=== PATIENT | female | born 1990 | race Caucasian/White ===

== ENCOUNTER 2016-11-09 02:26 | Inpatient (IN) ==
[2016-11-09 03:13] LABS: Bilirubin,Urine Negative (Negative); Blood,Urine Negative (Negative); Clarity,Urine Cloudy (Clear); Color,Urine Yellow (Yellow); Glucose,Urine (UA) Normal (Normal); Ketones,Urine Negative (Negative); Leukocyte Esterase,Urine Small (Negative); Nitrite,Urine Negative (Negative); Protein,Urine Negative (Neg-Trace); Specific Gravity,Urine 1.017 (1.010-1.025); Urobilinogen,Urine Normal (Normal)
[2016-11-09 03:15] LABS: Bacteria,Urine Moderate per hpf (None-Few); Hyaline Casts,Urine None Seen per lpf (None-Few); RBC,Urine 0-3 per hpf (0-3); Squamous Epithelial Cell,Urine Many per lpf (None-Few)
[2016-11-09 06:27] LABS: Basophils % 0.4 %; Eosinophils # 0.1 K/mcL (0.0-0.6); Eosinophils % 0.6 %; Hematocrit 34.8 % (35.3-44.9); Hemoglobin 11.5 g/dL (11.5-15.4); Immature Granulocytes % 1.2 % (0-4); Lymphocytes # 2.1 K/mcL (0.6-4.6); Lymphocytes % 26.6 %; Mean Corpuscular Hemoglobin 28.8 pg (28.0-33.3); Mean Platelet Volume 11.1 fL (9.4-12.4); Monocytes # 0.6 K/mcL (0.0-1.3); Monocytes % 7.1 %; Neutrophils # 5.2 K/mcL (1.6-8.9); Platelet Count 168 K/mcL (140-400); Red Cell Distribution Width 13.2 % (11.5-14.5); Segmented Neutrophils % 64.1 %
--- NOTE | 2016-11-09 07:04 | OB/GYN History & Physical ---
Date of Encounter: 11/09/16 Time of Encounter: 06:59 Assessment and Plan (1) labor in third trimester Current visit: Yes Status: Acute Will continue to monitor for cervial dilation and effacement. Will continue to use external and uterine monitoring. Urinalysis - contaminated POC per consult with Dr Varela Qualifiers: labor delivery status: without delivery Qualified Code(s): O60.03 - labor without delivery, third trimester (2) 36 weeks gestation of Current visit: Yes Status: Acute (3) Footling breech presentation Current visit: Yes Status: Acute Plan for primary section if patient continues to make cervical change. Qualifiers: Fetus number: single or unspecified fetus Qualified Code(s): O32.8XX0 - Maternal care for other malpresentation of fetus, not applicable or unspecified History of Present Illness Chief complaint: Contractions HPI: Ms. Agosto is a 26 year old at 36 weeks and 3 days that arrives to triage with complaints of contractions and feeling like that the "baby's foot is in her vagina". She is a known breech presentation and is electing a primary c/s if fetus does not spontaneously flip. She denies headache, epigastric pain, visual disturbances, vaginal bleeding, and vaginal discharge. She states positive movement. Her blood type is O+. She is GBS negative. She is rubella and varicella immune. She is RPR, HepB, and HIV nonreactive. Past Med Surg Social Fam HX - Past Medical History Medical history: no medical history Psychiatric history: no psych history - Past Surgical History Surgical History: no surgical history - Social History Smoking Status: Never smoker Smokeless Tobacco Status: No Alcohol use: none Drug use: none - Family History Mother History Unknown: Yes Obstetrical History - Pregnancies : 2 Para: 1 Term: 1 : 0 Ab's: 0 Livin Medications and Allergies Vitamins 1 tab PO DAILY 04/19/16 [History] 3 Allergy/AdvReac Type Severity Reaction Status Date / Time No Known Allergies Allergy Verified 11/09/16 02:48 Review of System OB All systems PM: reviewed and no additional remarkable complaints except as stated Exam - Constitutional Constitutional: well developed, well nourished, no acute distress, average body habitus - HEENT HEENT: Normocephaly, Mucus Membranes Moist - Lungs Respiratory exam: CTAB - Cardiovascular Cardiovascular exam: RRR, +S1, +S2 - Abdomen Abdomen: Present: bowel sounds normal, gravid, non tender - Extremities Extremities exam: normal capillary refill, normal inspection, radial pulses palpable and symmetrical Deep Tendon Reflex Grade: 2+ Normal - Cervix Dilation: 4 Effacement: 70 Station: -3 (Foot palpated) - Uterus Uterus exam: Present: normal size, normal contour Results Result Diagrams: 11/09/16 06:10 Abnormal lab results Hct 34.8 % (35.3-44.9) L 11/09/16 06:10 Urine Clarity Cloudy (Clear) A 11/09/16 02:59 Ur Leukocyte Esterase Small (Negative) H 11/09/16 02:59 Urine Microscopic WBC 5-15 per hpf (0-3) H 11/09/16 02:59 Ur Squamous Epith Cells Many per lpf (None-Few) H 11/09/16 02:59 Urine Bacteria Moderate per hpf (None-Few) H 11/09/16 02:59 Ur Culture Indicated? YES (NO) A 11/09/16 02:59 All other labs normal. - VTE Reasons for not Prescribing Prophylaxis: Treatment not Indicated - Low risk for VTE
--- NOTE | 2016-11-09 09:16 | OB/GYN Progress Note ---
Date of Encounter: 11/09/16 Time of Encounter: 09:14 - Assessment and Plan (1) 36 weeks gestation of Current Visit: Yes Status: Acute (2) Footling breech presentation Current Visit: Yes Status: Acute Qualifiers: Fetus number: single or unspecified fetus Qualified Code(s): O32.8XX0 - Maternal care for other malpresentation of fetus, not applicable or unspecified (3) labor in third trimester Current Visit: Yes Status: Acute Due to cervical progression, risk and benefits of expected management versus proceeding with primary low transverse section were discussed. Patient desires to proceed with primary low transverse section. Risk and benefits discussed. Qualifiers: labor delivery status: without delivery Qualified Code(s): O60.03 - labor without delivery, third trimester Subjective - Subjective Antepartum ROS: contractions (Patient reports increasing uterine activity.) Objective - Vital Signs Vital Signs: Intake and Output 11/08/16 11/09/16 11/09/16 23:59 07:59 15:59 Other: Weight 93.44 kg Patient Weight 11/09/16 23:59 Weight 93.44 kg - Exam FHR: category 1 Auscultation: bilateral: normal Abdomen: Present: soft, gravid Cervical dilation: 5-6 Cervix effacement: 80% station: -1/presenting part is foot - Labs Labs: Abnormal lab results Hct 34.8 % (35.3-44.9) L 11/09/16 06:10 Urine Clarity Cloudy (Clear) A 11/09/16 02:59 Ur Leukocyte Esterase Small (Negative) H 11/09/16 02:59 Urine Microscopic WBC 5-15 per hpf (0-3) H 11/09/16 02:59 Ur Squamous Epith Cells Many per lpf (None-Few) H 11/09/16 02:59 Urine Bacteria Moderate per hpf (None-Few) H 11/09/16 02:59 Ur Culture Indicated? YES (NO) A 11/09/16 02:59
[2016-11-09] MEDS ORDERED: Ringers Solution, Lactated 1,000 ML ONE ×3 (09:32→12:44)
--- NOTE | 2016-11-09 09:41 | Anesthesia Evaluation PreOp ---
Date of Encounter: 11/09/16 Time of Encounter: 09:38 - Past History Planned Operation: c/s, 36 weeks, breech, l1 Cardiac History: Denies any Significant Hx Pulmonary History: Denies Any Significant HX LEATHER TACKER History: Denies Any Significant HX Other Medical History: Denies Any Significant HX, Other (bicornuate uterus, vaginal delivery with epidural in 2012, no complications. pt denies scoliosis, denies easy bruise/bleed) Anesthesia History: No Prior Anesthetic Complications, Past Anesthesia (t&a) Alcohol Use: none Drug use: none Medications and Allergies Vitamins 1 tab PO DAILY 04/19/16 [History] 3 Allergy/AdvReac Type Severity Reaction Status Date / Time No Known Allergies Allergy Verified 11/09/16 02:48 - Meds/Allergy Pre-op Review Medications Reviewed: Yes Allergies Reviewed: Yes Beta Blockers on Current Med List: No Anesthesia Results - Labs 11/09/16 06:10 Anesthesia Exam 120/80, 73, fhr 120's Height: 1.68 Weight: 93 NPO (# of Hours): >8 - HEENT Pupil (Motor): Pupils equal, EOMI Mallampati: II Teeth: Normal Oral Opening: Greater than 3 - LEATHER TACKER LOC: Oriented LEATHER TACKER Motor: Normal RUE, Normal LUE, Normal RLE, Normal LLE, Normal Face LEATHER TACKER Sensory: Normal: RUE, LUE, RLE, LLE, Face - Cardiac Rhythm: Regular Murmur: None - Pulmonary Breath Sounds: bilateral Clear Respiratory Effort: Symmetrical Anesthesia Assess/Plan ASA Score: 2 (d/w pt risk of bleeding from atony with bicornuate uterus, it is assuring that she had no complications s/p vag delivery. however, we will be prepared to place hero, cvc and administer blood products under GA if needed.) Modified Anderson Scale for Level of Consciousness: Cooperative, oriented, and tranquil Anesthetic Plan: Regional Monitoring Plan: Standard Monitors Recovery Plan: PACU
[2016-11-09] MEDS ORDERED: Famotidine 20 MG/2 ML VIAL IVP PRN ×2 (10:05→18:19)
[2016-11-09] MEDS ORDERED: Metoclopramide 10 MG/2 ML VIAL IVP PRN ×3 (10:05→18:19)
[2016-11-09] MEDS ORDERED: Naloxone 0.4 MG/ML INJ IVP PRN ×2 (10:05→18:19)
[2016-11-09] MEDS ORDERED: ceFAZolin 2,000 MG in D5% in Water 100 ML IVPB ONE ×2 (10:09→18:19)
[2016-11-09] MEDS ORDERED: Ringers Solution, Lactated 1,000 ML IVC SCH ×2 (10:15→18:19)
--- NOTE | 2016-11-09 12:23 | Anesthesia Procedures ---
Date of Encounter: 11/09/16 Time of Encounter: 11:35 Procedures: Anesthesia - Epidural/Spinal Patient ID/Chart reviewed: Yes Patient examined: Yes OB Eval: Gestational age: 36 OB Eval: : 2 OB Eval: Hx Para: 1 OB Eval: Contractions: Non-stressed pattern Consent Obtained: Yes Supplemental Oxygen: Nasal Cannula Supplemental Oxygen Rate (L/min): 2 Site Prep: Aseptic Technique, Sterile prep and drape, Povidone-Iodine 1% Patient position: upright Local Anesthetic: Lidocaine 1% Amount of Local Anesthetic used: 3 Interspace Used: L3-L4 Loss of Resistance (AMI): No Blood: No CSF: Yes Paresthesia: Yes Spinal Needle Gauge: 22 Spinal Dose: bupivicaine 0.75% 1.6m dmorph 0.25mg fentanyl 10ug Vitals + FHT's: stable throughout see nursing notes
[2016-11-09] MEDS ORDERED: Ibuprofen 400 MG TABLET PO PRN ×2 (12:24→18:19)
[2016-11-09] MEDS ORDERED: *HR* OxyCODONE/APAP 5/325 TABLET PO PRN ×4 (12:24→18:19)
[2016-11-09] MEDS ORDERED: Ondansetron 4 MG/2 ML VIAL IVP PRN ×4 (12:24→20:53)
[2016-11-09] MEDS ORDERED: *HR* Meperidine 50 MG/ML SYRINGE IVP PRN ×2 (12:24→18:19)
[2016-11-09] MEDS ORDERED: *HR* Promethazine 25 MG/ML VIAL IVP PRN ×2 (12:24→18:19)
[2016-11-09] MEDS ORDERED: Ondansetron 4 MG/2 ML VIAL IVP ONE ×2 (12:24→18:19)
[2016-11-09] MEDS ORDERED: EPHEDrine 50 MG/ML VIAL ONE (12:29)
[2016-11-09] MEDS ORDERED: *HR* Morphine Sulfate/PF 5 MG/10 ML AMPUL ONE (12:29)
[2016-11-09] MEDS ORDERED: *HR* FentaNYL (PF) 100 MCG/2 ML VIAL ONE (12:29)
[2016-11-09] MEDS ORDERED: *HR* Oxytocin 10 UNIT/ML VIAL IM ONE ×2 (12:30→12:44)
[2016-11-09] MEDS ORDERED: Sennosides 8.6 MG TABLET PO PRN (13:05)
[2016-11-09] MEDS ORDERED: Ibuprofen 600 MG TABLET PO PRN (13:05)
[2016-11-09] MEDS ORDERED: Simethicone 80 MG TAB.CHEW PO PRN (13:05)
[2016-11-09] MEDS ORDERED: Oxytocin 20 units/ LR 1000 mL 20 UNIT/1,000 ML BAG IVC SCH (13:15)
--- NOTE | 2016-11-09 13:26 | OB/GYN Procedure Note ---
<Lam Benson - Last Filed: 11/09/16 13:33> Section - Date of procedure: 11/09/16 Preop diagnosis: breech, other (pre-term labor) Post-op diagnosis: same Procedure: primary low transverse Surgeon: Carlos Marie Estimated blood loss (cc): 500 Cigar Brander: Lam Benson Anesthesiologist: Peterson Castillo [employer]: Rena Real Anesthesia Type: Spinal section complications: none Disposition: PACU Specimens: Placenta - Infant (s) A Infant Delivery Date: 11/09/16 Delivery Time: 12:07 Presentation: footling breech Gender: Male Viability: Viable Pounds: 6 Ounces: 3 Gram Weight: 2.8 kg at 1 minute: 9 at 5 minutes: 9 Shoulder Dystocia: not encountered Placenta: complete extraction Cord: nuchal reduced (nuchal reduced x4) <Carlos Marie - Last Filed: 11/09/16 14:27> Section - Post-op diagnosis: other (Bicornuate uterus and nuchal cord 4) - Narrative Narrative: Patient was taken to the operating room. After satisfactory spinal anesthesia was achieved, she was placed in supine position Miller catheter inserted prepped and draped in usual manner. After appropriate timeout, the abdomen was entered through standard Maylard incision. The Kwame retractor was placed. The peritoneum overlying the lower uterine segment was incised in the U-shaped fashion. The uterine cavity was entered sharply and extended laterally. Fluid was clear. The buttocks were delivered, the legs delivered, arms delivered, nuchal 4 was relieved, and the head was delivered. The umbilical cord was doubly clamped and cut and the was handed to nursery staff for further evaluation. The placenta was removed and sent to pathology for analysis. The uterus was closed in a single layer with 0 Monocryl. After assurance of hemostasis, the peritoneum was reapproximated with 2-0 Vicryl. The abdomen was closed in a fashion using 0 Vicryl in the fascia and 3-0 Monocryl in the skin. Sterile dressing was applied. Patient did well was taken to recovery in satisfactory condition. Counts were correct.
[2016-11-09] MEDS ORDERED: Oxytocin 20 units/ LR 1000 mL 20 UNIT/1,000 ML BAG IVC ONE (19:48)
--- NOTE | 2016-11-09 20:37 | Anesthesia Evaluation Post Op ---
Date of Encounter: 11/09/16 Time of Encounter: 20:00 - Vital Signs Vital Signs: Vital Signs/O2 Sat/Glucose, Most Current Temp Pulse Resp BP Pulse Ox 11/09/16 17:46 97.6 F 84 14 112/70 100 11/09/16 16:40 97.9 F 90 14 115/67 100 - Lungs Lungs: Clear Ascult./Percussion - Airway Airway: Non-obstructed - Cardiovascular Regular Rate - Mental Status Mental Status: Alert & Oriented, Answers Appropriately - Pain Pain Scale: 0 - Nausea Vomiting Nausea Vomiting: Not Present - Hydration Hydration: Ice chips, Miller catheter - Discharge PostOp Status: Transfer Patient to floor
[2016-11-10] MEDS: *HR* OxyCODONE/APAP 5/325 TABLET PO PRN ×2 (01:01→21:11)
[2016-11-10] MEDS: Ibuprofen 600 MG TABLET PO PRN ×3 (03:44→19:58)
[2016-11-10] MEDS: Prenatal Vit/FA 1 EACH TABLET PO SCH (08:20)
[2016-11-10] MEDS ORDERED: Prenatal Vit/FA 1 EACH TABLET PO SCH (09:00)
--- NOTE | 2016-11-10 09:10 | OB/GYN Progress Note ---
Date of Encounter: 11/10/16 Time of Encounter: 09:07 - Assessment and Plan (1) Status post delivery Current Visit: Yes Status: Acute Doing well, meeting milestones (2) delivery Current Visit: Yes Status: Acute Pt with septate uterus, previous term vaginal vtx delivery (3) Footling breech presentation Current Visit: Yes Status: Acute stable in room Qualifiers: Fetus number: single or unspecified fetus Qualified Code(s): O32.8XX0 - Maternal care for other malpresentation of fetus, not applicable or unspecified Subjective - Subjective Principal diagnosis: PPOD1 C/S Interval history: The patient is passing gas, w/o N+V, tolerating regular diet Patient reports: appetite normal, voiding normally, pain well controlled, ambulating normally : doing well, bottle feeding Objective - Vital Signs Latest vital signs: Vital Signs Temp Pulse Pulse Resp BP Pulse Ox 11/10/16 07:45 98.3 F 87 16 100/66 97 11/10/16 03:40 98.0 F 87 16 100/67 97 11/10/16 00:50 98.4 F 98 16 105/73 98 11/09/16 20:25 78 11/09/16 20:00 97.4 F L 98 14 105/66 97 11/09/16 17:46 97.6 F 84 14 112/70 100 11/09/16 16:40 97.9 F 90 14 115/67 100 11/09/16 16:00 97.9 F 92 14 111/65 96 11/09/16 15:30 14 Intake and Output 11/09/16 11/10/16 11/10/16 23:59 07:59 15:59 Intake Total 100 / 100 Output Total 400 / 400 2800 / 2800 Balance -400 / -400 -2700 / -2700 Intake: Oral 100 / 100 Output: Catheter 400 / 400 2800 / 2800 - Exam Lungs: bilateral: normal Chest: Normal S1, Normal S2 Extremities: Present: normal Abdomen: Present: normal appearance, soft. Absent: distention, tenderness Incision: Present: normal, dry, dressed Uterus: Present: normal, firm - Allied health notes Allied health notes reviewed: nursing
[2016-11-10 09:19] LABS: Basophils % 0.3 %; Eosinophils # 0.1 K/mcL (0.0-0.6); Eosinophils % 0.6 %; Hematocrit 31.9 % (35.3-44.9); Hemoglobin 10.2 g/dL (11.5-15.4); Immature Granulocytes % 0.8 % (0-4); Lymphocytes # 1.7 K/mcL (0.6-4.6); Lymphocytes % 14.8 %; Mean Corpuscular Hemoglobin 27.9 pg (28.0-33.3); Mean Corpuscular Volume 87.4 fL (83.0-100.0); Mean Platelet Volume 11.1 fL (9.4-12.4); Monocytes # 0.8 K/mcL (0.0-1.3); Monocytes % 6.9 %; Neutrophils # 8.6 K/mcL (1.6-8.9); Platelet Count 194 K/mcL (140-400); Red Blood Count 3.65 M/mcL (3.82-4.97); Red Cell Distribution Width 13.4 % (11.5-14.5); Segmented Neutrophils % 76.6 %
[2016-11-11] MEDS ORDERED: Simethicone 80 MG TAB.CHEW PO PRN (08:47)
[2016-11-11 08:49] VITALS: BP 109/72
--- NOTE | 2016-11-11 08:50 | Discharge Summary ---
Date of Encounter: 11/11/16 Time of Encounter: 08:48 - Discharge Diagnosis (1) Status post delivery Priority: Primary Status: Acute Comments: Pt meeting all postop milestones and is requesting discharge home today. - Discharge Medications Prescriptions: Ibuprofen [Motrin] 600 mg PO Q6HR PRN #60 tab PRN Reason: Mild To Moderate Pain OxyCODONE/APAP 5/325 [Percocet 5/325 MG] 1 each PO Q6HR PRN #30 tab PRN Reason: Moderate Pain Docusate [Colace] 100 mg PO BID #60 Home Medications: Vitamins 1 tab PO DAILY 04/19/16 [History] Docusate [Colace] 100 mg PO BID #60 11/11/16 [Rx] Ibuprofen [Motrin] 600 mg PO Q6HR PRN #60 tab 11/11/16 [Rx] OxyCODONE/APAP 5/325 [Percocet 5/325 MG] 1 each PO Q6HR PRN #30 tab 11/11/16 [Rx ] Simethicone [Gas-X] 80 mg PO TID PRN 11/11/16 [Rx] Allergies/Adverse Reactions: 3 Allergy/AdvReac Type Severity Reaction Status Date / Time No Known Allergies Allergy Verified 11/09/16 02:48 Data Procedures and tests throughout hospitalization: Laboratory Tests 11/09/16 11/09/16 11/10/16 02:59 06:10 09:11 WBC 8.1 11.3 H RBC 4.00 3.65 L Hgb 11.5 10.2 L Hct 34.8 L 31.9 L MCV 87.0 87.4 MCH 28.8 27.9 L MCHC 33.0 32.0 RDW 13.2 13.4 Plt Count 168 194 MPV 11.1 11.1 Immature Gran % 1.2 0.8 Seg Neutrophils % 64.1 76.6 Lymphocytes % 26.6 14.8 Monocytes % 7.1 6.9 Eosinophils % 0.6 0.6 Basophils % 0.4 0.3 Neutrophils # 5.2 8.6 Lymphocytes # 2.1 1.7 Monocytes # 0.6 0.8 Eosinophils # 0.1 0.1 Basophils # 0.0 0.0 Urine Color Yellow Urine Clarity Cloudy A Urine pH 7.0 Ur Specific [place] 1.017 Urine Protein Negative Urine Glucose (UA) Normal Urine Ketones Negative Urine Blood Negative Urine Nitrite Negative Urine Bilirubin Negative Urine Urobilinogen Normal Ur Leukocyte Esterase Small H Urine Microscopic RBC 0-3 Urine Microscopic WBC 5-15 H Ur Squamous Epith Cells Many H Urine Bacteria Moderate H Hyaline Casts None Seen Ur Culture Indicated? YES A Labs on day of discharge: Labs from last 24 hours 11/10/16 09:11 WBC 11.3 H RBC 3.65 L Hgb 10.2 L Hct 31.9 L MCV 87.4 MCH 27.9 L MCHC 32.0 RDW 13.4 Plt Count 194 MPV 11.1 Immature Gran % 0.8 Seg Neutrophils % 76.6 Lymphocytes % 14.8 Monocytes % 6.9 Eosinophils % 0.6 Basophils % 0.3 Neutrophils # 8.6 Lymphocytes # 1.7 Monocytes # 0.8 Eosinophils # 0.1 Basophils # 0.0 Date of admission: 11/09/16 02:26 Primary care physician: Juanita Hernandez, Discharging clinician: Gretel Jackson Anticipated date of discharge: 11/11/16 - Patient Status Disposition: Home, Self-Care Condition: Good Functional capacity at discharge: independent ambulation Overall status at discharge: patient is progressing back to baseline - Discharge Instructions Follow Up With: Juanita Hernandez DO [Primary Care Provider] - Rody Fuentes MD [Partnered Physician] - - Diet and Activity Activity: increase activity as tolerated Diet: regular diet Hospital Course Reason for admission: active labor, IUP - Delivery: section Episiotomy: none Laceration: none Other procedures: none complications: none Discharge diagnosis: delivery baby: male Hospital course: - Date of procedure: 11/09/16 Preop diagnosis: breech, other (pre-term labor) Post-op diagnosis: same Procedure: primary low transverse Surgeon: Carlos Marie Estimated blood loss (cc): 500 News Production Assistant: Lam Benson Anesthesiologist: Peterson Castillo Housekeeper Cleaning Cooking: Rena Real Anesthesia Type: Spinal section complications: none Disposition: PACU Specimens: Placenta - (s) Infant A Delivery Date: 11/09/16 Infant Delivery Time: 12:07 Presentation: footling breech Gender: Male Viability: Viable Pounds: 6 Ounces: 3 Gram Weight: 2.8 kg at 1 minute: 9 at 5 minutes: 9 Shoulder Dystocia: not encountered Placenta: complete extraction Cord: nuchal reduced (nuchal reduced x4) Time Attestation: Total time spent providing and/or coordinating discharge services: Time Spent: Less than 30 minutes - VTE Reasons for not Prescribing Prophylaxis: Treatment not Indicated - Low risk for VTE Documentation of Mechanical Device: Intermittent pneumatic compression device Exam - Constitutional Vitals: Temp Pulse Resp BP Pulse Ox 97.5 F L 87 16 110/73 96 11/10/16 20:08 11/10/16 20:08 11/10/16 20:08 11/10/16 20:08 11/10/16 20:08 General appearance IM: A&O X 3, pleasant, no acute distress - Respiratory Respiratory exam: Present: CTAB - Cardiovascular Cardiovascular exam IM: Present: RRR - GI/Abdominal GI/Abdominal exam IM: soft, no peritoneal signs Incision: dressed (KOSTA dressing with small amount old drainage.) - Rectal Rectal exam: deferred - Uterine Tone: Firm Uterus Position: 2 Fingers Below Umbilicus - Extremities Exam Extremities exam IM: Present: normal inspection - Neurological Exam Neurological exam: normal gait, oriented X3 - Psychiatric Additional comments: Reports good mood - Other Additional findings: OARRS reviewed
[2016-11-11] MEDS: Prenatal Vit/FA 1 EACH TABLET PO SCH (08:52)
[2016-11-11] MEDS: Ibuprofen 600 MG TABLET PO PRN (09:16)
[2016-11-11] MEDS: *HR* OxyCODONE/APAP 5/325 TABLET PO PRN (13:36)
== END 2016-11-11 14:45 | disposition home or self-care (01) | DRG 540 ==
LOC: 1NENULAB → OBSVTOIN 02:26 → 1NENUOBS 15:31
PROVIDERS: ADMIT Obstetrics & Gynecology; ATTEND Obstetrics & Gynecology

== ENCOUNTER 2019-10-29 02:47 | Observation (INO) ==
[2019-10-29] MEDS ORDERED: EPINEPHrine 1 MG/ML VIAL IM ONE ×2 (03:33→07:37)
[2019-10-29] MEDS ORDERED: Famotidine 20 MG/2 ML VIAL IVP ONE ×3 (03:33→22:40)
[2019-10-29] MEDS ORDERED: methylPREDNISolone 125 MG/2 ML VIAL IVP ONE (03:33)
[2019-10-29] MEDS ORDERED: 0.9 % Sodium Chloride 1,000 ML IV ONE (03:35)
[2019-10-29 08:12] LABS: Basophils % 0.4 %; Eosinophils # 0.1 K/mcL (0.0-0.6); Eosinophils % 2.1 %; Hematocrit 39.8 % (35.3-44.9); Hemoglobin 13.9 g/dL (11.5-15.4); Immature Granulocytes % 0.4 % (0-4); Lymphocytes # 1.9 K/mcL (0.6-4.6); Mean Corpuscular HGB Conc 34.9 g/dL (31.6-35.5); Mean Corpuscular Hemoglobin 33.3 pg (28.0-33.3); Mean Corpuscular Volume 95.4 fL (83.0-100.0); Mean Platelet Volume 9.8 fL (9.4-12.4); Monocytes # 0.2 K/mcL (0.0-1.3); Monocytes % 2.7 %; Neutrophils # 3.5 K/mcL (1.6-8.9); Platelet Count 270 K/mcL (140-400); Red Blood Count 4.17 M/mcL (3.82-4.97); Red Cell Distribution Width 12.1 % (11.5-14.5); Segmented Neutrophils % 61.4 %; White Blood Count 5.6 K/mcL (4.3-11.1)
[2019-10-29 08:36] LABS: BUN/Creatinine Ratio 8 (6-26); Blood Urea Nitrogen 5 mg/dL (6-20); Calcium 8.6 mg/dL (8.6-10.3); Carbon Dioxide 25 mEq/L (23-29); Chloride 104 mEq/L (98-107); Glucose 132 mg/dL (70-105); Osmolality,Calculated 279 (280-300); Potassium 3.5 mEq/L (3.5-5.1); Sodium 135 mEq/L (136-145); eGFR For African Americans > 60 (> 60); eGFR For Non-African Americans > 60 (> 60)
[2019-10-29] MEDS ORDERED: Ondansetron 4 MG/2 ML VIAL IVP PRN (09:50)
[2019-10-29] MEDS ORDERED: Naloxone 0.4 MG/ML INJ IVP PRN (09:50)
[2019-10-29] MEDS ORDERED: EPINEPHrine 1 MG/ML VIAL IM PRN (09:51)
[2019-10-29] MEDS: 0.9 % Sodium Chloride 1,000 ML IVC SCH ×2 (11:04→21:24)
[2019-10-29] MEDS: MethylPREDNISolone 40 MG/ML VIAL IVP SCH ×2 (15:10→15:58)
[2019-10-29] MEDS: *HR* Heparin 5,000 UNIT/ML VIAL SQ SCH (16:30)
[2019-10-29] MEDS ORDERED: Acetaminophen IV 1,000 MG/100 ML INFUS..BTL IVPB ONE (22:44)
[2019-10-30] MEDS ORDERED: Morphine Sulfate 2 MG/ML SYRINGE IVP ONE (01:23)
[2019-10-30] MEDS ORDERED: MethylPREDNISolone 40 MG/ML VIAL IVP ONE (01:23)
[2019-10-30] MEDS: *HR* Heparin 5,000 UNIT/ML VIAL SQ SCH (05:40)
[2019-10-30 10:05] VITALS: BP 110/68
[2019-10-30] MEDS ORDERED: MethylPREDNISolone 40 MG/ML VIAL IVP SCH (13:00)
== END 2019-10-30 11:45 | disposition home or self-care (01) ==
LOC: EMEROOARM 02:47 → 3BNU 02:47 → SUATTDRO 09:43 → 3BNU 10:31
PROVIDERS: ADMIT Internal Medicine; ATTEND Internal Medicine

== ENCOUNTER 2019-10-31 13:37 | Observation (INO) ==
[2019-10-31 14:15] LABS: Hematocrit 40.9 % (35.3-44.9); Hemoglobin 13.8 g/dL (11.5-15.4); Mean Corpuscular HGB Conc 33.7 g/dL (31.6-35.5); Mean Corpuscular Volume 94.9 fL (83.0-100.0); Mean Platelet Volume 9.7 fL (9.4-12.4); Platelet Count 257 K/mcL (140-400); Red Blood Count 4.31 M/mcL (3.82-4.97); Red Cell Distribution Width 11.9 % (11.5-14.5); White Blood Count 3.2 K/mcL (4.3-11.1)
[2019-10-31 14:41] LABS: Alanine Aminotransferase 83 Units/L (7-52); Albumin 3.4 g/dL (3.5-5.7); Albumin/Globulin Ratio 1.5 (1.1-2.2); Alkaline Phosphatase 93 Units/L (34-104); Aspartate Amino Transferase 51 Units/L (13-39); BUN/Creatinine Ratio 9 (6-26); Bilirubin,Total 0.7 mg/dL (0.3-1.0); Blood Urea Nitrogen 6 mg/dL (6-20); Calcium 8.7 mg/dL (8.6-10.3); Carbon Dioxide 26 mEq/L (23-29); Chloride 103 mEq/L (98-107); Globulin 2.2 g/dL (2.4-3.5); Glucose 182 mg/dL (70-105); Osmolality,Calculated 284 (280-300); Potassium 3.8 mEq/L (3.5-5.1); Sodium 136 mEq/L (136-145); Total Protein 5.6 g/dL (6.4-8.9); eGFR For African Americans > 60 (> 60); eGFR For Non-African Americans > 60 (> 60)
[2019-10-31 15:10] LABS: Lymphocytes # 1.9 K/mcL (0.6-4.6); Monocytes # 0.3 K/mcL (0.0-1.3)
[2019-10-31 15:11] LABS: Platelet Estimate Normal (Normal); Reactive Lymphocytes Present (Not Present)
[2019-10-31] MEDS ORDERED: Ondansetron 4 MG/2 ML VIAL IVP PRN (15:25)
[2019-10-31] MEDS ORDERED: Naloxone 0.4 MG/ML INJ IVP PRN (15:25)
[2019-10-31] MEDS ORDERED: EPINEPHrine 1 MG/ML VIAL IM PRN (15:27)
[2019-10-31] MEDS ORDERED: Albuterol 2.5 MG/3 ML NEBULIZER IH PRN (16:04)
[2019-10-31] MEDS: MethylPREDNISolone 40 MG/ML VIAL IVP SCH ×2 (16:34→17:32)
[2019-10-31] MEDS: Famotidine 20 MG/2 ML VIAL IVP SCH ×2 (16:34→17:32)
[2019-10-31] MEDS: (Dextroamphetamine/Amphetamine [Adderall 20 Mg Tablet PO SCH (19:52)
[2019-11-01] MEDS: *HR* Enoxaparin 40 MG/0.4 ML SYRINGE SQ SCH (05:10)
[2019-11-01] MEDS: Famotidine 20 MG/2 ML VIAL IVP SCH ×2 (05:11→18:25)
[2019-11-01] MEDS: MethylPREDNISolone 40 MG/ML VIAL IVP SCH ×2 (05:11→18:25)
[2019-11-01 06:28] LABS: Basophils % 0.2 %; Hemoglobin 14.1 g/dL (11.5-15.4); Immature Granulocytes % 0.4 % (0-4); Lymphocytes % 55.3 %; Mean Corpuscular HGB Conc 34.4 g/dL (31.6-35.5); Mean Corpuscular Hemoglobin 33.3 pg (28.0-33.3); Mean Corpuscular Volume 96.7 fL (83.0-100.0); Mean Platelet Volume 10.3 fL (9.4-12.4); Monocytes # 0.4 K/mcL (0.0-1.3); Monocytes % 6.7 %; Platelet Count 272 K/mcL (140-400); Red Blood Count 4.24 M/mcL (3.82-4.97); Red Cell Distribution Width 11.9 % (11.5-14.5); Segmented Neutrophils % 37.4 %; White Blood Count 5.4 K/mcL (4.3-11.1)
[2019-11-01 06:53] LABS: BUN/Creatinine Ratio 10 (6-26); Blood Urea Nitrogen 6 mg/dL (6-20); Carbon Dioxide 28 mEq/L (23-29); Chloride 104 mEq/L (98-107); Glucose 89 mg/dL (70-105); Magnesium 2.2 mg/dL (1.6-2.6); Osmolality,Calculated 283 (280-300); Phosphorous 4.7 mg/dL (2.7-4.5); Potassium 3.7 mEq/L (3.5-5.1); Sodium 138 mEq/L (136-145); eGFR For African Americans > 60 (> 60); eGFR For Non-African Americans > 60 (> 60)
[2019-11-01] MEDS: (Dextroamphetamine/Amphetamine [Adderall 20 Mg Tablet PO SCH ×2 (07:47→20:10)
[2019-11-01] MEDS: Loratadine 10 MG TABLET PO SCH ×2 (08:24→20:11)
[2019-11-01 11:03] LABS: Alanine Aminotransferase 76 Units/L (7-52); Albumin 3.3 g/dL (3.5-5.7); Albumin/Globulin Ratio 1.6 (1.1-2.2); Alkaline Phosphatase 86 Units/L (34-104); Aspartate Amino Transferase 51 Units/L (13-39); Bilirubin,Direct 0.1 mg/dL (0.0-0.2); Bilirubin,Indirect 0.4 mg/dL (0.0-1.0); Bilirubin,Total 0.5 mg/dL (0.3-1.0); Globulin 2.1 g/dL (2.4-3.5); Total Protein 5.4 g/dL (6.4-8.9)
[2019-11-02] MEDS: Famotidine 20 MG/2 ML VIAL IVP SCH (05:31)
[2019-11-02] MEDS: *HR* Enoxaparin 40 MG/0.4 ML SYRINGE SQ SCH (05:31)
[2019-11-02] MEDS: MethylPREDNISolone 40 MG/ML VIAL IVP SCH (05:32)
[2019-11-02 06:58] LABS: Alanine Aminotransferase 91 Units/L (7-52); Albumin 3.4 g/dL (3.5-5.7); Albumin/Globulin Ratio 1.5 (1.1-2.2); Alkaline Phosphatase 82 Units/L (34-104); Aspartate Amino Transferase 59 Units/L (13-39); BUN/Creatinine Ratio 13 (6-26); Bilirubin,Total 0.5 mg/dL (0.3-1.0); Blood Urea Nitrogen 8 mg/dL (6-20); Carbon Dioxide 28 mEq/L (23-29); Chloride 103 mEq/L (98-107); Globulin 2.2 g/dL (2.4-3.5); Glucose 91 mg/dL (70-105); Magnesium 2.2 mg/dL (1.6-2.6); Osmolality,Calculated 282 (280-300); Phosphorous 4.3 mg/dL (2.7-4.5); Potassium 3.6 mEq/L (3.5-5.1); Sodium 137 mEq/L (136-145); Total Protein 5.6 g/dL (6.4-8.9); eGFR For African Americans > 60 (> 60); eGFR For Non-African Americans > 60 (> 60)
[2019-11-02 07:10] LABS: Hepatitis B Surface Antigen Nonreactive (Nonreactive)
[2019-11-02 07:38] LABS: Hepatitis C Virus Antibody Nonreactive (Nonreactive)
[2019-11-02 07:39] LABS: Hepatitis B Core IgM Nonreactive (Nonreactive)
[2019-11-02 07:40] LABS: Hepatitis A Antibody IgM Nonreactive (Nonreactive)
[2019-11-02 08:07] VITALS: BP 116/76
[2019-11-02] MEDS: Loratadine 10 MG TABLET PO SCH (08:49)
[2019-11-02] MEDS: (Dextroamphetamine/Amphetamine [Adderall 20 Mg Tablet PO SCH (09:16)
[2019-11-03 14:02] LABS: Thyroglobulin Antibody <0.9 IU/mL (0.0-4.0)
[2019-11-03 14:20] LABS: ANA IgG by ELISA NONE DETECTED (None Detected)
== END 2019-11-02 16:34 | disposition home or self-care (01) ==
LOC: 3BNU 13:37 → EMEROOARM 13:37 → SUATTDRO 15:25 → 3BNU 16:23
PROVIDERS: ADMIT Student in an Organized Health Care Education/Training Program; ATTEND Internal Medicine